=== PATIENT | female | born 1935 | race Asian ===

== ENCOUNTER 2016-04-10 14:58 | Outpatient (CLI) | payer MEDICARE, OTHER | END 2016-04-10 14:59 | disposition home or self-care (01) | DX: B97.89 Other viral agents as the cause of diseases classified elsewhere (principal); R06.00 Dyspnea, unspecified ==

== ENCOUNTER 2016-05-14 10:41 | Outpatient (CLI) | payer MEDICARE, OTHER | END 2016-05-14 10:42 | disposition home or self-care (01) | DX: C50.912 Malignant neoplasm of unspecified site of left female breast (principal) ==

== ENCOUNTER 2016-12-18 15:21 | Outpatient (CLI) | payer MEDICARE, OTHER ==
[2016-12-18 13:57] LABS: CHOL/HDL RATIO 3.5 (<4.4); CHOLESTEROL 294 mg/dL; HDL CHOLESTEROL 83 mg/dL; LDL/HDL RATIO 2.2 (<4.4); TRIGLYCERIDES 133 mg/dL; VLDL CHOLESTEROL 27 mg/dL
[2016-12-18 14:07] LABS: THYROID STIMULATING HORMONE 0.68 uIU/mL (0.34-5.60)
== END 2016-12-18 15:22 | disposition home or self-care (01) ==
LOC: LAB.WCP 15:21
PROVIDERS: ATTEND Physician Assistant Medical
DX: E78.5 Hyperlipidemia, unspecified (principal); E03.9 Hypothyroidism, unspecified; I10 Essential (primary) hypertension; E11.9 Type 2 diabetes mellitus without complications
CPT/HCPCS: 36415; 80061; 84439; 84443; 84481

== ENCOUNTER 2017-05-14 14:54 | Outpatient (CLI) | payer MEDICARE, OTHER ==
--- NOTE | 2017-05-16 14:32 | Ultrasound Report ---
CAROTID DUPLEX: 05/14/2017 CLINICAL INDICATION: Vertigo, dizziness and giddiness. COMPARISON: 07/2006 TECHNIQUE: Real-time sonographic vascular imaging was performed by the railroad accountant through the carotid arteries utilizing both color-flow and Doppler spectral analysis. Multiple off premise service representative static images were saved for review. RIGHT Vessel PSV cm/sec EDV cm/sec ICA/CCA RSV Ratio Degree of Stenosis Plaque Estimate % RCCA Prox 72 -- -- RCCA Dist 72 22 -- RECA 42 -- -- RT BULB 53 19 0.74 LIVIA Prox 52 19 0.72 LIVIA Mid 60 20 0.83 LIVIA Dist 74 21 1.03 RVA 53 -- -- RVA flow direction: Antegrade LEFT Vessel PSV cm/sec EDV cm/sec ICA/CCA RSV Ratio Degree of Stenosis Plaque Estimate % LCCA Prox 76 -- -- LCCA Dist 83 23 -- LECA 46 -- -- LFT BULB 73 19 1.88 LICA Prox 58 20 0.70 LICA Mid 64 26 0.77 LICA Dist 91 34 1.10 LVA 32 -- -- LVA flow direction: Antegrade Velocity criteria are extrapolated from diameter data as defined by the Society of Radiologists in Ultrasound Consensus Conference Radiology 2003; 229; 340-346. Degree of Stenosis % ICA PSV cm/sec ICA EDV cm/sec ICA/CCA PSV Ratio Plaque Estimate % Normal < 125 < 40 < 2.0 None <50 < 125 < 40 < 2.0 < 50 50-69 125-130 40-100 2.0-4.0 >/=50 >/=70 but less than near occlusion > 230 > 100 > 4.0 >/=50 Near occlusion High, low or undetectable Variable Variable Visible Total occlusion Undetectable Not applicable Not applicable No detectable lumen RIGHT: There is minimal plaquing in the right carotid bifurcation, without evidence of a focal hemodynamically significant stenosis. LEFT: There is minimal plaquing in the left carotid bifurcation, without evidence of a focal hemodynamically significant stenosis. The vertebral arteries demonstrate antegrade flow bilaterally. IMPRESSION: NO EVIDENCE OF A HEMODYNAMICALLY SIGNIFICANT CAROTID STENOSIS. TD: 05/15/2017 09:39 [facility], [place]
== END 2017-05-14 14:55 | disposition home or self-care (01) ==
LOC: DI 14:54
PROVIDERS: ATTEND Physician Assistant Medical
DX: R42 Dizziness and giddiness (principal)
CPT/HCPCS: 93880

== ENCOUNTER 2017-07-31 16:13 | Outpatient (CLI) | payer MEDICARE, OTHER ==
--- NOTE | 2017-08-05 17:26 | Mammography Report ---
DIGITAL SCREENING MAMMOGRAM: 07/31/2017 CLINICAL INDICATION: An 81-year-old with personal history of left breast cancer status post lumpectomy, nulliparous patient for screening. COMPARISON: 05/2016, 02/2015, 03/2014, 12/2012, 08/2010, 07/2009. TECHNIQUE: Routine CC and MLO projections were obtained of the breasts. FINDINGS: The breasts again demonstrate heterogeneously dense fibroglandular parenchyma bilaterally. Postoperative changes are stable. Coarse and punctate, typically benign calcifications are present. No suspicious masses, clustered microcalcifications, or regions of architectural distortion are identified. IMPRESSION: BENIGN FINDINGS. RECOMMENDATION: Routine annual screening unless otherwise clinically indicated. BIRADS category 2 benign findings. STANDARD QUALIFYING STATEMENTS 1. This examination was reviewed with the aid of Computed-Aided Detection (CAD). 2. A negative or benign imaging report should not delay biopsy if clinically suspicious findings are present. Consider surgical consultation if warranted. More than 5% of cancers are not identified by imaging. 3. Dense breasts may obscure an underlying neoplasm. TD: 08/05/2017 15:32
== END 2017-07-31 16:14 | disposition home or self-care (01) ==
LOC: DI.N 16:13
PROVIDERS: ATTEND Family Medicine
DX: Z12.31 Encounter for screening mammogram for malignant neoplasm of breast (principal); Z85.3 Personal history of malignant neoplasm of breast
CPT/HCPCS: 77067

== ENCOUNTER 2018-07-15 11:50 | Outpatient (CLI) | payer MEDICARE, OTHER ==
--- NOTE | 2018-07-15 15:02 | XRAY Report ---
Reason: KNEE PAIN,BILATERAL Procedure Date: 07/15/2018 Accession Number: [id number] / [id number] Procedure: WCP - Knee 2 View BILAT CPT Code: FULL RESULT: EXAMS: 1. RIGHT KNEE RADIOGRAPHY 2. LEFT KNEE RADIOGRAPHY EXAM DATE:07/15/2018 12:11 PM. CLINICAL HISTORY:Knee pain, bilateral. COMPARISON: None. TECHNIQUE: 2 views each. FINDINGS: Right Knee: Bones: The bones are qualitatively osteopenic; this limits evaluation for underlying fractures or masses. No fracture is detected. Joints: Chondrocalcinosis. Mild joint space narrowing of the weightbearing compartments. No joint effusion. No subluxation. Soft Tissues: Normal. No soft tissue swelling. Left Knee: Bones: The bones are qualitatively osteopenic; this limits evaluation for underlying fractures or masses. No fracture is detected. Joints: Chondrocalcinosis and symmetric mild joint space narrowing of weightbearing compartments. No subluxation or joint effusion. Soft Tissues: Normal. No soft tissue swelling. IMPRESSION: Osteopenia and degenerative changes including chondrocalcinosis bilaterally. RADIA
== END 2018-07-15 11:51 | disposition home or self-care (01) ==
LOC: DI.WCP 11:50
PROVIDERS: ATTEND Physician Assistant Medical
DX: M17.0 Bilateral primary osteoarthritis of knee (principal); M11.262 Other chondrocalcinosis, left knee; M11.261 Other chondrocalcinosis, right knee; M85.862 Other specified disorders of bone density and structure, left lower leg; M85.861 Other specified disorders of bone density and structure, right lower leg
CPT/HCPCS: 73565

== ENCOUNTER 2018-07-16 08:15 | Emergency (ER) | payer MEDICARE, OTHER ==
[2018-07-16] MEDS ORDERED: SODIUM CHLORIDE 0.9% 1,000 ML IV ONE (09:20)
[2018-07-16] MEDS ORDERED: IOVERSOL 320 100 ML VIAL IVP ONE ×2 (09:29→14:47)
[2018-07-16 10:04] LABS: BASOPHILS % (AUTO) 0.5 %; EOSINOPHILS # (AUTO) 0.1 10^3/uL (0.0-0.7); EOSINOPHILS % (AUTO) 0.8 %; HGB - HEMOGLOBIN 14.1 g/dL (12.0-16.0); MEAN CORPUSCULAR HEMOGLOBIN 31.4 pg (27.0-31.0); MEAN CORPUSCULAR HGB CONC 33.8 g/dL (32.0-36.0); MEAN CORPUSCULAR VOLUME 92.9 fL (81.0-99.0); MEAN PLATELET VOLUME 8.7 fL (7.9-10.8); MONOCYTES # (AUTO) 0.6 10^3/uL (0.0-1.0); NEUTROPHILS # (AUTO) 5.4 10^3/uL (1.5-6.6); NEUTROPHILS % (AUTO) 66.7 %; PLT - PLATELET COUNT 145 10^3/uL (130-450); RED CELL DISTRIBUTION WIDTH 13.9 % (12.0-15.0); WHITE BLOOD COUNT 8.2 x10^3/uL (4.8-10.8)
[2018-07-16 10:24] LABS: ALBUMIN 4.2 g/dL (3.2-5.5); ALBUMIN/GLOBULIN RATIO 1.2 (1.0-2.2); CALCIUM 10.2 mg/dL (8.5-10.3); TOTAL PROTEIN 7.6 g/dL (6.7-8.2)
[2018-07-16] MEDS ORDERED: KETOROLAC 30 MG/ML VIAL IVP STA (11:15)
--- NOTE | 2018-07-16 11:15 | ED Physician Documentation ---
PD HPI ABD PAIN - Stated complaint Stated Complaint: FEMALE - Chief complaint Chief Complaint: Abd Pain - History obtained from History obtained from: Patient, Family - History of Present Illness Timing - onset: How many days ago (3) Timing - duration: Days (3) Timing - details: Gradual onset, Still present Quality: Sharp, Pain Location: LLQ Radiation: Lower back Improved by: Laying still Worsened by: Moving, Position, Palpation Associated symptoms: Nausea, Diarrhea Similar symptoms before: Diagnosis (colitis) Recently seen: Not recently seen - Additional information Additional information: 82 y/o female with a prior history of colitis 2 prior episodes years apart has developed diarrhea and left lower quadrant abdominal pain again. She did require hospitalization for 5 days on her initial episode. Her most recent episode in 2016 she was able to treat with antibiotic and did well at home. Review of Systems Constitutional: reports: Fatigue. denies: Fever, Chills Eyes: denies: Decreased vision Ears: denies: Ear pain Nose: denies: Rhinorrhea / runny nose, Congestion Throat: denies: Sore throat Cardiac: denies: Chest pain / pressure, Palpitations Respiratory: denies: Dyspnea, Cough GI: reports: Abdominal Pain, Nausea, Diarrhea, Bloody / black stool. denies: Vomiting : denies: Dysuria, Frequency Skin: denies: Rash Musculoskeletal: denies: Neck pain, Back pain, Extremity pain Neurologic: reports: Generalized weakness. 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, Other - Present Medications Home Medications: Ambulatory Orders Medication Instructions Recorded Confirmed Atenolol 50 mg PO BID 07/23/13 06/02/18 Felodipine [Plendil] 5 mg PO DAILY 07/23/13 06/02/18 Simvastatin 20 mg PO DAILY 07/23/13 06/02/18 hydroCHLOROthiazide 25 mg PO DAILY 07/23/13 06/02/18 [Hydrochlorothiazide] Levothyroxine [Synthroid] 88 mcg PO DAILY 05/11/14 06/02/18 LORazepam [Ativan] 0.5 mg PO ONCE PRN 05/31/14 06/02/18 Ibuprofen [Advil] 100 mg PO DAILY PRN 07/29/15 06/02/18 oxyCODONE [Roxicodone] 5 mg PO Q6HR PRN 11/05/16 06/02/18 Ciprofloxacin HCl [Cipro] 500 mg PO BID #14 tablet 07/16/18 Oxycodone HCl/Acetaminophen 1 - 2 each PO Q6H PRN #14 tablet 07/16/18 [Percocet 5-325 mg Tablet] metroNIDAZOLE [Metronidazole] 500 mg PO BID #14 tablet 07/16/18 - Allergies Allergies/Adverse Reactions: Allergies Allergy/AdvReac Type Severity Reaction Status Date / Time No Known Drug Allergies Allergy Verified 07/16/18 08:25 - Social History Does the pt smoke?: No Smoking Status: Never smoker Does the pt drink ETOH?: Yes Does the pt have substance abuse?: No - Immunizations Immunizations are current?: No Immunizations: TDAP >10years/unknown - POLST Patient has POLST: No PD ED PE NORMAL - Vitals Vital signs reviewed: Yes (hypertensive ) - General General: Alert and oriented X 3, No acute distress, Well developed/nourished - HEENT HEENT: Atraumatic, PERRL, EOMI - Neck Neck: Supple, no meningeal sign - Cardiac Cardiac: RRR, No murmur - Respiratory Respiratory: No respiratory distress, Clear bilaterally - Abdomen Abdomen: Soft, Other (LLQ tenderness to palpation without guarding or rebound tenderness) - Back Back: No CVA TTP, No spinal TTP - Derm Derm: Normal color, Warm and dry, No rash - Extremities Extremities: No deformity, No edema - Neuro Neuro: Alert and oriented X 3, museum exhibit designer 2-12 intact, No motor deficit, No sensory deficit, Normal speech Eye Opening: Spontaneous Motor: Obeys Commands Verbal: Oriented GCS Score: 15 - Psych Psych: Normal mood, Normal affect Results - Vitals Vitals: Vital Signs - 24 hr 07/16/18 07/16/18 07/16/18 08:23 10:00 13:35 Temperature 36.4 C L Heart Rate 79 74 84 Respiratory 18 16 16 Rate Blood Pressure 151/82 H 142/80 H 122/70 O2 Saturation 95 96 95 Oxygen O2 Source Room air - Labs Labs: Laboratory Tests 0507/16/18 07/16/18 09:54 09:54 09:54 WBC 8.2 RBC 4.50 Hgb 14.1 Hct 41.8 MCV 92.9 MCH 31.4 H MCHC 33.8 RDW 13.9 Plt Count 145 MPV 8.7 Neut # (Auto) 5.4 Lymph # (Auto) 2.0 [place] # (Auto) 0.6 Eos # (Auto) 0.1 Baso # (Auto) 0.0 Absolute Nucleated RBC 0.00 Nucleated RBC % 0.0 Sodium 138 Potassium 3.9 Chloride 101 Carbon Dioxide 25 Anion Gap 12.0 BUN 20 Creatinine 1.0 Estimated GFR (MDRD) 53 L Glucose 103 H Calcium 10.2 Total Bilirubin 1.0 AST 32 ALT 31 Alkaline Phosphatase 54 Troponin I < 0.04 Total Protein 7.6 Albumin 4.2 Globulin 3.4 Albumin/Globulin Ratio 1.2 Lipase 31 Urine Color Urine Clarity Urine pH Ur Specific Martin Urine Protein Urine Glucose (UA) Urine Ketones Urine Occult Blood Urine Nitrite Urine Bilirubin Urine Urobilinogen Ur Leukocyte Esterase Ur Microscopic Review Urine Culture Comments 07/16/18 13:55 WBC RBC Hgb Hct MCV MCH MCHC RDW Plt Count MPV Neut # (Auto) Lymph # (Auto) [place] # (Auto) Eos # (Auto) Baso # (Auto) Absolute Nucleated RBC Nucleated RBC % Sodium Potassium Chloride Carbon Dioxide Anion Gap BUN Creatinine Estimated GFR (MDRD) Glucose Calcium Total Bilirubin AST ALT Alkaline Phosphatase Troponin I Total Protein Albumin Globulin Albumin/Globulin Ratio Lipase Urine Color YELLOW Urine Clarity CLEAR Urine pH 5.5 Ur Specific Martin <=1.005 Urine Protein NEGATIVE Urine Glucose (UA) NEGATIVE Urine Ketones NEGATIVE Urine Occult Blood TRACE-INTA Urine Nitrite NEGATIVE Urine Bilirubin NEGATIVE Urine Urobilinogen 0.2 (NORMAL) Ur Leukocyte Esterase NEGATIVE Ur Microscopic Review NOT INDICATED Urine Culture Comments NOT INDICATED - Rads (name of study) CT abd/pel with Radiology: Prelim report reviewed, EMP read indepedently, See rad report PD MEDICAL DECISION MAKING - ED course Complexity details: reviewed results, re-evaluated patient, considered differential, d/w patient, d/w family ED course: 82-year-old female with diarrhea and left lower quadrant abdominal pain has colitis on CT examination of the abdomen and pelvis and she is administered intravenous saline as well as metronidazole and Cipro. Departure - Departure Disposition: 01 Home, Self Care Clinical Impression: Colitis presumed to be due to infection Condition: Stable Instructions: ED Gastroenteritis Bacterial Follow-Up: Lizet Hardwick PA-C [Primary Care Provider] - Prescriptions: Ciprofloxacin HCl [Cipro] 500 mg PO BID #14 tablet metroNIDAZOLE [Metronidazole] 500 mg PO BID #14 tablet Oxycodone HCl/Acetaminophen [Percocet 5-325 mg Tablet] 1 - 2 each PO Q6H PRN #14 tablet PRN Reason: pain
--- NOTE | 2018-07-16 11:38 | CT Report ---
Reason: LLQ pain Procedure Date: 07/16/2018 Accession Number: [id number] / [id number] Procedure: CT - Abdomen/Pelvis W CPT Code: FULL RESULT: EXAM: CT ABDOMEN AND PELVIS EXAM DATE: 07/16/2018 11:16 AM. CLINICAL HISTORY: Left lower quadrant pain. COMPARISONS: ABDOMEN/PELVIS W/O 07/29/2015 11:16 AM. TECHNIQUE: Routine helical CT imaging was performed through the abdomen and pelvis. IV contrast: ISOVUE 300 100 mL. Enteric contrast: No. Reconstructions: Coronal and sagittal. In accordance with CT protocol optimization, one or more of the following dose reduction techniques were utilized for this exam: automated exposure control, adjustment of mA and/or KV based on patient size, or use of iterative reconstructive technique. FINDINGS: Lung Bases: Unremarkable. Liver: Normal. No masses. Gallbladder/Bile Ducts: Status post cholecystectomy with markedly prominent extrahepatic biliary duct, unchanged compared to 2016. Spleen: Normal. Pancreas: Normal. Adrenal Glands: Normal. Kidneys: Normal. No masses or hydronephrosis. Peritoneal Cavity/Bowel: There is marked segmental wall thickening with induration of the colonic vascular arcade and mucosal hyperenhancement of the mid descending colon reaching to the proximal sigmoid colon. Diverticulosis of predominantly the sigmoid colon was also noted without focal increased inflammatory changes surrounding a diverticulum. The appendix is not well seen. Closely associated with the right adnexa are loops of tethered appearing distal ileum, possibly sequela of prior regional inflammation. There is no free fluid or free air. There is no bowel obstruction. There is no lymphadenopathy. Pelvic Organs: Bladder is within normal limits and the patient is status post hysterectomy. Vasculature: No aneurysms or other significant abnormality. Bones: No acute osseous abnormalities detected. Other: None. IMPRESSION: Descending and sigmoid colitis. Please note that the configuration of loops of terminal ileum raises the question of inflammatory bowel disease. RADIA The call report notification system was initiated by Dr. Arron Chapman at 11:37 AM on 07/16/2018. ADDENDUM: 07/16/18 11:43 The above call report findings were discussed with Ruben Romo by Dr. Arron Chapman at 11:43 AM on 07/16/2018.
[2018-07-16] MEDS ORDERED: metroNIDAZOLE 500 MG/100 ML 500 MG/100 ML BAG IV ONE (11:43)
[2018-07-16 14:08] LABS: BILIRUBIN,URINE NEGATIVE (NEGATIVE); GLUCOSE, URINE (UA) NEGATIVE (NEGATIVE); KETONES,URINE (UA) NEGATIVE (NEGATIVE); LEUKOCYTE ESTERASE, URINE NEGATIVE (NEGATIVE); NITRITE,URINE NEGATIVE (NEGATIVE); OCCULT BLOOD,URINE TRACE-INTA (NEGATIVE); PH,URINE 5.5 PH (5.0-7.5); PROTEIN,URINE NEGATIVE (NEGATIVE); UROBILINOGEN,URINE 0.2 (NORMAL) E.U./dL (NORMAL)
[2018-07-16 14:09] LABS: CLARITY,URINE CLEAR (CLEAR)
[2018-07-16] MEDS ORDERED: CIPROFLOXACIN 400 MG/200 ML 200 ML IV ONE (14:57)
[2018-07-16 16:19] VITALS: BP 124/72
== END 2018-07-16 16:39 | disposition home or self-care (01) ==
LOC: ED 08:15
DX: K52.9 Noninfective gastroenteritis and colitis, unspecified (principal); K21.9 Gastro-esophageal reflux disease without esophagitis; Z87.19 Personal history of other diseases of the digestive system; I10 Essential (primary) hypertension
CPT/HCPCS: 36415; 74177; 80053; 81003; 83690; 84484; 85025; 96361; 96365; 96367; 96375; 99283; Q9967; 81001; 87086

== ENCOUNTER 2018-08-04 11:18 | Outpatient (CLI) | payer MEDICARE, OTHER ==
--- NOTE | 2018-08-05 09:23 | Mammography Report ---
Reason: SCREENING MAMMO Procedure Date: 08/04/2018 Accession Number: [id number] / [id number] Procedure: MGN - Screening Mammo Dig Bilat CPT Code: FULL RESULT: EXAM: Screening Mammo Dig Bilat DATE: 08/04/2018 11:47 AM CLINICAL HISTORY: History of left breast cancer status post radiation and lumpectomy TECHNIQUE: (B) - Bilateral CC and MLO views were obtained. COMPARISON: 07/31/2017, 05/14/2016, 11/09/2015, 02/08/2015. PARENCHYMAL PATTERN: (D) - The breasts demonstrate heterogeneously dense fibroglandular parenchyma bilaterally. FINDINGS: Posttreatment changes, deformity, and skin thickening in the left breast are stable. There are no new suspicious masses, calcifications, or areas of distortion. IMPRESSION: Benign findings. BI-RADS category 2. RECOMMENDATION: (ANNUAL) - Recommend routine annual screening mammography. BI-RADS CATEGORY: (2) - Benign Findings. STANDARD QUALIFYING STATEMENTS: 1. This examination was not reviewed with the aid of Computer-Aided Detection (CAD). 2. A negative or benign imaging report should not preclude biopsy if clinically suspicious findings are present. 3. Dense breasts may obscure an underlying neoplasm. 4. This examination was reviewed without the aid of 3D breast imaging (tomosynthesis).
== END 2018-08-04 11:19 | disposition home or self-care (01) ==
LOC: DI.N 11:18
PROVIDERS: ATTEND Internal Medicine Hematology & Oncology
DX: Z12.31 Encounter for screening mammogram for malignant neoplasm of breast (principal); Z85.3 Personal history of malignant neoplasm of breast
CPT/HCPCS: 77067

== ENCOUNTER 2019-11-03 09:42 | Outpatient (CLI) | payer MEDICARE, OTHER ==
--- NOTE | 2019-11-03 17:07 | DEXA Report ---
PROCEDURE: Dexa Spine and/or Hip INDICATIONS: POST MENOPAUSAL TECHNIQUE: Dual energy x-ray absorptiometry (DXA) was performed on a [employer] System. Regions measur ed are the AP Spine, femoral neck, and if needed forearm. COMPARISON: 04/29/2017 FINDINGS: Lumbar Spine: Bone Mineral Density 0.933 g/cm/cm,T score -2.1, moderate to severe osteopenia, compared to -2.4 o n prior exam. Left Hip: Bone Mineral Density 0.746 g/cm/cm,T score -2.1, moderate osteopenia, compared to -1.7 on prior exam . Left Femoral Neck: Bone Mineral Density 0.65 g/cm/cm, T score -2.7, mild osteoporosis, compared to -2.5 on prior exam. (T score greater or equal to -1.0: NORMAL) (T score from -1.1 to -2.4: OSTEOPENIA) (T score less than or equal to -2.5 to: OSTEOPOROSIS) Impression: Osteoporosis within the left femoral neck with prominent osteopenia in the lumbar spine a nd left hip, progressive. Patients with diagnosis of osteoporosis or osteopenia should have regular bone mineral density assess ment. For those eligible for Medicare, routine testing is allowed once every 2 years. Testing frequ ency can be increased for patients who have rapidly progressing disease or for those who are receivin g medical therapy to restore bone mass. Reviewed by: Marilynn Garber MD on 11/03/2019 5:05 PM PDT Approved by: Marilynn Garber MD on 11/03/2019 5:05 PM PDT Station ID: [id number]
== END 2019-11-03 09:43 | disposition home or self-care (01) ==
LOC: DI 09:42
PROVIDERS: ATTEND Internal Medicine Hematology & Oncology
DX: M81.0 Age-related osteoporosis without current pathological fracture (principal)
CPT/HCPCS: 77080

== ENCOUNTER 2019-12-09 10:06 | Outpatient (CLI) | payer MEDICARE, OTHER ==
--- NOTE | 2019-12-10 08:33 | Mammography Report ---
BILATERAL DIGITAL DIAGNOSTIC MAMMOGRAM 3D/2D: 12/09/2019 CLINICAL: Personal history of left breast cancer. Comparison is made to exams dated: 08/04/2018 mammogram, 07/31/2017 mammogram, 05/14/2016 mammogram, 11/08 mammogram, and 03/28/2015 breast MRI - [facility]. The tissue of both breasts is heterogeneously dense. This may lower the sensitivity of mammography. There is a benign post surgical scar in the lumpectomy cavity in the left breast in the upper outer q uadrant that is decreased in size. No significant masses, calcifications, or other findings are seen in either breast. IMPRESSION: BENIGN There is no mammographic evidence of malignancy. Return to annual mammogram screening schedule is rec ommended. Findings and recommendations were conveyed to the patient at time of exam. This exam was interpreted at Station ID: [id number]. NOTE: For mammograms, a report in lay terms will be sent to the patient. Approximately 15% of breast malignancies will not be visualized mammographically. In the management of a palpable breast mass, a negative mammogram must not discourage biopsy of a clinically suspicious lesion. Electronically Signed By: Maya tomas/:12/09/2019 10:59:09 ACR BI-RADS Category 2: Benign Finding(s) 3342F PARENCHYMAL PATTERN: (D) - The breast(s) demonstrate(s) heterogeneously dense fibroglandular abdifatah thakkar. BI-RADS CATEGORY: (2) - 2 RECOMMENDATION: (ANNUAL) - Recommend routine annual screening mammography. [id number] return to screening LATERALITY: (B)
== END 2019-12-09 10:07 | disposition home or self-care (01) ==
LOC: DI 10:06
PROVIDERS: ATTEND Internal Medicine Hematology & Oncology
DX: Z85.3 Personal history of malignant neoplasm of breast (principal)
CPT/HCPCS: 77066

== ENCOUNTER 2019-12-31 07:00 | Outpatient (CLI) | payer MEDICARE, OTHER ==
--- NOTE | 2019-12-31 16:03 | XRAY Report ---
PROCEDURE: Chest 2 View X-Ray INDICATIONS: LEFT CHEST PAIN TECHNIQUE: 2 view(s) of the chest. COMPARISON: Chest x-ray 03/20/2017 FINDINGS: Surgical changes and devices: Cholecystectomy clips. Lungs and pleura: No pleural effusions or pneumothorax. Lungs are clear. Mediastinum: Mediastinal contours are normal. Heart size is normal. Bones and chest wall: No suspicious bony abnormalities. Soft tissues appear unremarkable. IMPRESSION: No acute pulmonary process. Reviewed by: Marilynn Garber MD on 12/31/2019 4:02 PM PDT Approved by: Marilynn Garber MD on 12/31/2019 4:02 PM PDT Station ID: [id number]
== END 2019-12-31 23:59 | disposition home or self-care (01) ==
LOC: DI.WCP 07:00
PROVIDERS: ATTEND Nurse Practitioner Family
DX: R07.9 Chest pain, unspecified (principal)

== ENCOUNTER 2020-12-06 07:45 | Outpatient (CLI) | payer MEDICARE, OTHER ==
--- NOTE | 2020-12-07 10:47 | Mammography Report ---
BILATERAL DIGITAL DIAGNOSTIC MAMMOGRAM 3D/2D: 12/06/2020 CLINICAL: Routine screening. Personal history of left breast cancer. Comparison is made to exams dated: 12/09/2019 mammogram, 08/04/2018 mammogram, 07/31/2017 mammogram, 05/14/2016 mammogram, 11/09/2015 mammogram, and 03/28/2015 breast MRI - [facility]. The t issue of both breasts is heterogeneously dense. This may lower the sensitivity of mammography. There are benign calcifications in both breasts. There also are benign post operative findings in th e left breast. No significant masses, calcifications, or other findings are seen in either breast. There has been no significant interval change. IMPRESSION: BENIGN There is no mammographic evidence of malignancy. A 1 year screening mammogram is recommended. This exam was interpreted at Station ID: [id number]. NOTE: For mammograms, a report in lay terms will be sent to the patient. Approximately 15% of breast malignancies will not be visualized mammographically. In the management of a palpable breast mass, a negative mammogram must not discourage biopsy of a clinically suspicious lesion. Electronically Signed By: Masood Bey acr/penrad:12/06/2020 08:57:06 ACR BI-RADS Category 2: Benign Finding(s) 3342F PARENCHYMAL PATTERN: (D) - The breast(s) demonstrate(s) heterogeneously dense fibroglandular parhannay ariane. BI-RADS CATEGORY: (2) - 2 RECOMMENDATION: (ANNUAL) - Recommend routine annual screening mammography. [id number] 1 year screening LATERALITY: (B)
== END 2020-12-06 07:46 | disposition home or self-care (01) ==
LOC: DI 07:45
PROVIDERS: ATTEND Internal Medicine Hematology & Oncology
DX: Z12.31 Encounter for screening mammogram for malignant neoplasm of breast (principal); Z85.3 Personal history of malignant neoplasm of breast

== ENCOUNTER 2021-02-21 08:00 | Outpatient (CLI) | payer MEDICARE, OTHER | END 2021-02-21 23:59 | LOC: LAB 08:00 | PROVIDERS: ATTEND Family Medicine | DX: R30.0 Dysuria (principal) | CPT/HCPCS: 87086; 87181 ==

== ENCOUNTER 2021-11-05 09:17 | Outpatient (CLI) | payer MEDICARE, OTHER ==
--- NOTE | 2021-11-05 13:31 | XRAY Report ---
PROCEDURE: Ribs w/PA Chest LT INDICATIONS: L SIDED RIB PX TECHNIQUE: 3 views of the left ribs were acquired, along with a single view chest. COMPARISON: None FINDINGS: Surgical changes and devices: None. Bones and chest wall: No fractures or dislocations. No suspicious bony lesions. Overlying soft tis sues appear unremarkable. Lungs and pleura: No pneumothorax. There is blunting of the right costophrenic angle probably scarrin g with similar findings on prior x-ray. The Lungs appear clear. Mediastinum: Mediastinal contours appear normal. Heart size is normal. IMPRESSION: 1. No rib fracture. 2. No acute cardiopulmonary abnormality. Reviewed by: Masood Bey on 11/05/2021 1:30 PM PDT Approved by: Masood Bey on 11/05/2021 1:30 PM PDT Station ID: [id number]
== END 2021-11-05 09:18 | disposition home or self-care (01) ==
LOC: DI.N 09:17
PROVIDERS: ATTEND Physician Assistant Medical
DX: R07.81 Pleurodynia (principal)

== ENCOUNTER 2021-12-25 15:15 | Outpatient (CLI) | payer MEDICARE, OTHER ==
--- NOTE | 2021-12-25 19:23 | XRAY Report ---
PROCEDURE: Thoracic Spine 3 View INDICATIONS: R UPPER BACK PAIN, R/O FRACTURE TECHNIQUE: 2 views of the thoracic spine were acquired. COMPARISON: None. FINDINGS: Bones: T7 wedge-shaped compression fracture noted with 70% anterior height loss. There is generalized decreased osseous mineralization present. Diffuse disc space narrowing present in the lower thoracic spine Soft tissues: No paravertebral stripe thickening. Surgical clip quadrant probably reflects a cholec ystectomy. Surgical clip in the right upper quadrant IMPRESSION: T7 osteopenic compression fracture Aortic atherosclerosis Reviewed by: lA Rea MD on 12/25/2021 6:22 PM PUENET Approved by: Al Rea MD on 12/25/2021 6:22 PM PUNEET Station ID: [id number]
== END 2021-12-25 15:16 | disposition home or self-care (01) ==
LOC: DI 15:15
PROVIDERS: ATTEND Internal Medicine Hematology & Oncology
DX: M48.54XA Collapsed vertebra, not elsewhere classified, thoracic region, initial encounter for fracture (principal); I70.0 Atherosclerosis of aorta

== ENCOUNTER 2022-02-08 08:00 | Outpatient (CLI) | payer MEDICARE, OTHER | END 2022-02-08 23:59 | disposition home or self-care (01) | LOC: LAB 08:00 | PROVIDERS: ATTEND Physician Assistant Medical | DX: R10.11 Right upper quadrant pain (principal) | CPT/HCPCS: 36415; 82565 ==

== ENCOUNTER 2022-02-08 12:07 | Outpatient (CLI) | payer MEDICARE, OTHER ==
[2022-02-08] MEDS ORDERED: DIATRIZOATE MEGLU/DIATRIZO SOD 30 ML BOTTLE PO ONE (12:18)
[2022-02-08] MEDS ORDERED: iohexoL-300 100 ML VIAL ONE (12:18)
== END 2022-02-08 12:08 | disposition home or self-care (01) ==
LOC: LAB 12:07
PROVIDERS: ATTEND Physician Assistant Medical
DX: R10.11 Right upper quadrant pain (principal)

== ENCOUNTER 2023-07-31 08:30 | Outpatient (CLI) | payer MEDICARE, OTHER ==
[2023-07-31 11:52] LABS: BASOPHILS % (AUTO) 0.6 %; EOSINOPHILS # (AUTO) 0.1 10^3/uL (0.0-0.7); EOSINOPHILS % (AUTO) 1.9 %; HCT - HEMATOCRIT 45.4 % (37.0-47.0); HGB - HEMOGLOBIN 14.5 g/dL (12.0-16.0); LYMPHOCYTES # (AUTO) 2.2 10^3/uL (1.5-3.5); LYMPHOCYTES % (AUTO) 45.9 %; MEAN CORPUSCULAR HEMOGLOBIN 30.7 pg (27.0-31.0); MEAN CORPUSCULAR HGB CONC 31.9 g/dL (32.0-36.0); MEAN PLATELET VOLUME 11.1 fL (7.9-10.8); MONOCYTES # (AUTO) 0.4 10^3/uL (0.0-1.0); MONOCYTES % (AUTO) 8.8 %; NEUTROPHILS % (AUTO) 42.4 %; PLT - PLATELET COUNT 163 10^3/uL (130-450); RED BLOOD COUNT 4.73 10^6/uL (4.20-5.40); RED CELL DISTRIBUTION WIDTH 13.7 % (12.0-15.0); WHITE BLOOD COUNT 4.8 x10^3/uL (4.8-10.8)
[2023-07-31 12:21] LABS: ALBUMIN 4.3 g/dL (3.2-5.5); ALBUMIN/GLOBULIN RATIO 1.2 (1.0-2.2); BILIRUBIN,TOTAL 0.3 mg/dL (0.2-1.0); CALCIUM 10.4 mg/dL (8.5-10.3); CREATININE 1.3 mg/dL (0.6-1.3); POTASSIUM 4.3 mmol/L (3.5-4.5); TOTAL PROTEIN 7.8 g/dL (6.4-8.9)
[2023-07-31 12:27] LABS: THYROID STIMULATING HORMONE 3.28 uIU/mL (0.34-5.60)
== END 2023-07-31 08:45 | disposition home or self-care (01) ==
LOC: LAB.N 08:30
PROVIDERS: ATTEND Family Medicine
DX: R35.0 Frequency of micturition (principal); R42 Dizziness and giddiness
CPT/HCPCS: 36415; 80053; 84443; 85025; 87086

== ENCOUNTER 2023-10-24 10:53 | Outpatient (CLI) | payer MEDICARE, OTHER ==
--- NOTE | 2023-10-25 11:20 | CT Report ---
PROCEDURE: Head WO INDICATIONS: SYNCOPE AND COLLAPSE TECHNIQUE: Noncontrast 4.5 mm thick angled axial sections acquired from the foramen magnum to the vertex. For r adiation dose reduction, the following was used: automated exposure control, adjustment of mA and/or kV according to patient size. COMPARISON: None. FINDINGS: Image quality: There is streak artifact seen through the skull base. CSF spaces: Basal cisterns are patent. No extra-axial fluid collections. Ventricles are normal in size and shape. Brain: No midline shift. No intracranial masses or hemorrhage. Senior-white matter interface is norm al. Symmetric calcification of the basal ganglia can be seen, which is considered to be within shanika l limits for age. Age-appropriate brain parenchymal volume loss and chronic small vessel ischemic c hange can be seen. Skull and face: Calvarium and visualized facial bones are intact, without suspicious lesions. Sinuses: Moderate mucosal thickening can be seen within the right maxillary sinus. The right maxilla ry sinus is small in size. The paranasal sinuses otherwise appear clear. No significant abnormal flui d can be seen within the mastoid air cells. IMPRESSION: Noncontrast head CT within normal limits for age. To the limits of this noncontrast study, no findings of masses or mass effect can be seen. Additional findings: Chronic appearing right maxillary sinus disease Reviewed by: Hesham Alex MD on 10/25/2023 10:16 AM PUNEET Approved by: Hesham Alex MD on 10/25/2023 10:16 AM PUNEET Station ID: [id number]
== END 2023-10-24 10:54 | disposition home or self-care (01) ==
LOC: DI 10:53
PROVIDERS: ATTEND Physician Assistant Medical
DX: R55 Syncope and collapse (principal)